=== PATIENT | male | born 1945 | race Caucasian/White ===

== ENCOUNTER 2017-04-24 19:12 | Emergency (ER) | payer OTHER, MEDICARE ==
[~2017-04-24] VITALS: Ht 172.7 cm; Wt 75.5 kg
[2017-04-24 19:43] VITALS: BP 172/88; PULSE 98; RESP 18; TEMP 98.3; O2SAT 98
[2017-04-24] MEDS ORDERED: LIDOCAINE HCL 1% 50 ML VIAL INFIL ONE (20:30)
--- NOTE | 2017-04-24 20:52 | PD ---
HPI Chief Complaint: Bleeding Time Seen by Provider: 19:56 Travel History International Travel<30 days: No Contact w/Intl Traveler<30days: No Traveled to known affect area: No History of Present Illness HPI 71-year-old male here with bleeding from his right earlobe since 5:30pm. 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 Dumont. Bleeding began spontaneously while resting on the couch. He and his attempted applying pressure with no improvement in the bleeding. He is not anticoagulated. He denies headache, dizziness. PFSH Past Medical History Cancer: Yes (ear) Diminished Hearing: No Immunizations Current: Yes Tetanus Vaccination: < 5 Years Influenza Vaccination: No Past Surgical History Ear Surgery: Yes (melenoma) Social History Alcohol Use: No Tobacco Use: No Substance Use: No Allergies-Medications (Allergen,Severity, Reaction): Coded Allergies: penicillin V (Verified Allergy, Unknown, 04/24/17) Reported Meds & Prescriptions Reported Meds & Active Scripts Active No Active Prescriptions or Reported Medications Review of Systems Except as stated in HPI: all other systems reviewed are Neg Physical Exam Narrative GENERAL: Alert, well-appearing 71-year-old male SKIN: Warm and dry. HEAD: Normocephalic. EYES: No injection or drainage. Ear: Surgical wound with sutures in place to the earlobe. Bleeding noted from the posterior aspect of the earlobe at the suture site. NECK: Supple, trachea midline. 2+ carotid pulses Data Data Last Documented VS Vital Signs Date Time Temp Pulse Resp B/P (MAP) Pulse Ox O2 Delivery O2 Flow Rate FiO2 04/24/17 19:52 (116) 04/24/17 19:43 98.3 98 18 98 Orders Orders Lidocaine 1% Inj (50 Ml) (Xylocaine 1% I (04/24/17 20:30) Lidocaine 1% Inj (Xylocaine 1% Inj) (04/24/17 21:00) MDM Medical Decision Making Medical Screen Exam Complete: Yes Emergency Medical Condition: Yes Differential Diagnosis Bleeding from surgical site, surgical site recheck Narrative Course 71-year-old male here for evaluation of bleeding from his right earlobe after he had a cancerous skin lesion removed from the lobe this afternoon. Hemostasis achieved after one suture applied to the area of bleeding. Diagnosis Primary Impression: Bleeding from wound Referrals: Wen Dumont MD Additional Instructions: Keep the dressing in place until tomorrow. Follow the instructions provided by the surgeon. If the area begins to bleed again apply firm continuous pressure for 10 minutes. Return to the ER if the bleeding persists Scripts No Active Prescriptions or Reported Meds Disposition: 01 DISCHARGE HOME Condition: Stable Emani Alamo Apr 24, 2017 20:52
[2017-04-24] MEDS ORDERED: LIDOCAINE HCL 1% 20 ML VIAL INFIL ONE (21:00)
== END 2017-04-24 21:10 | disposition home or self-care (01) ==
LOC: PHEFT 19:12
DX: H95.42 Postprocedural hemorrhage of ear and mastoid process following other procedure (principal); Z88.0 Allergy status to penicillin
CPT/HCPCS: 12011